=== PATIENT | female | born 1935 | race Asian ===

== ENCOUNTER 2019-06-16 14:14 | Emergency (ER) | payer MEDICARE, MEDICAID ==
[~2019-06-16] VITALS: Ht 162.6 cm; Wt 43.0 kg
--- NOTE | 2019-06-16 14:24 | NUR ---
PT BIB EMS FROM [facility]. PT WAS AT DOCTOR FOR CHECK UP. SHE IS ON CONTINOUS 02 AND WHILE AT THE DOCTORS OFFICE HER 0XYGEN TANK WASFOUND TO BE EMPTY. PT WAS SOB AND C/O CP. RA SP02=60%. EMS WAS CALLED ON THEIR ARRIVAL THEY PLACED 02 4L NC WITH EFFECT AND PTNOW PRESENTS WITH SP02 = 100% ON 4L NC. FI02 DECREASED TO 2L NC. PT ON MONITORS VSS ALTHOUGH BP IS ELEVATED AT 176/101. LUNG SOUNDS CLR T/O ALTHOUGH DIMINISHED YOLANDA BASES. PT ON ALL MONITORS AND EKG COMPLETED.
--- NOTE | 2019-06-16 14:28 | NUR ---
PT MOVED TO ROOM 16, SBAR RPT TO ROSS CHRISTIANSON
[2019-06-16] MEDS ORDERED: ATOR-2 PO (15:27)
[2019-06-16] MEDS ORDERED: CARV3.12 PO (15:27)
[2019-06-16] MEDS ORDERED: ASPI-496 PO (15:29)
[2019-06-16] MEDS ORDERED: HYDR25TA6 PO (15:29)
[2019-06-16] MEDS ORDERED: LISI-170 PO (15:29)
[2019-06-16] MEDS ORDERED: BUDE10.2 INH (15:29)
[2019-06-16] MEDS ORDERED: TIOT18CA INH (15:29)
[2019-06-16] MEDS ORDERED: SODIUM CHLORIDE FLUSH 10ML SYR IVF ONE (15:30)
[2019-06-16 15:54] LABS: BASOPHILS # (AUTO) 0.02 x10^3/uL (0-0.1); BASOPHILS % (AUTO) 1 % (0-1); EOSINOPHILS # (AUTO) 0.08 x10^3/uL (0-0.4); EOSINOPHILS % (AUTO) 2 % (1-7); LYMPHOCYTES # (AUTO) 1.26 x10^3/uL (1-3.4); LYMPHOCYTES % (AUTO) 27 % (22-44); MD NO; MEAN CORPUSCULAR HEMOGLOBIN 31.7 pg (27.0-34.8); MEAN CORPUSCULAR HGB CONC 33.5 g/dL (32.4-35.8); MEAN CORPUSCULAR VOLUME 94.7 fL (80-100); MEAN PLATELET VOLUME 7.5 fL (7.4-10.4); MONOCYTES # (AUTO) 0.54 x10^3/uL (0.2-0.8); MONOCYTES % (AUTO) 12 % (2-9); NEUTROPHILS # (AUTO) 2.79 x10^3/uL (1.8-6.8); NEUTROPHILS % (AUTO) 59 % (42-75); PLATELET COUNT 284 x10^3/uL (130-400); RED BLOOD COUNT 3.32 x10^6/uL (3.82-5.3); RED CELL DISTRIBUTION WIDTH 12.7 % (9.6-15.2)
[2019-06-16 15:56] LABS: ALBUMIN 3.9 g/dL (3.4-5.0); ANION GAP 2 mmol/L (5-15); CHLORIDE 94 mmol/L (98-107)
[2019-06-16 16:00] LABS: ALANINE AMINOTRANSFERASE 28 U/L (12-78); ALKALINE PHOSPHATASE 154 U/L (45-117); BILIRUBIN,TOTAL 0.2 mg/dL (0.2-1.0); CREATININE 0.85 mg/dL (0.55-1.02); TOTAL PROTEIN 7.4 g/dL (6.4-8.2); TROPONIN I < 0.015 ng/mL (0.000-0.045)
--- NOTE | 2019-06-16 16:34 | NUR ---
AWAITING CT SCAN. GOT HER TWO BLANKETS.
--- NOTE | 2019-06-16 17:08 | NUR ---
awaiting ct scan
--- NOTE | 2019-06-16 17:23 | NUR ---
patient awaiting ct scan. friend at bedside growing impatient waiting. aidet. got blankets, socks, trying to help keep patient comfortable.
--- NOTE | 2019-06-16 17:34 | NUR ---
got patient three more blankets, still cold. placed bare hugger on low heat on patient. she has cold extremities, states this normal for her.
--- NOTE | 2019-06-16 17:44 | NUR ---
patient friend is angry about waiting for ct. aidet. apologizing.
--- NOTE | 2019-06-16 18:09 | NUR ---
HELPED PATIENT UP TO VOID IN BEDSIDE COMMODE, NO COMPLICATIONS.
--- NOTE | 2019-06-16 18:49 | NUR ---
REPORT RECEIVED FROM ROSS CHRISTIANSON. PLAN OF CARE DISCUSSED
--- NOTE | 2019-06-16 20:05 | NUR ---
PATIENT PROVIDED WITH FOOD AND COFFEE AFTER VERIFYING OKAY BY MD SARITA
[2019-06-16 20:21] VITALS: BP 173/67
--- NOTE | 2019-06-16 20:47 | NUR ---
Patient/Caregiver given discharge instructions and they have confirmed that they understand the instructions. Patient ambulatory with steady gait with own walker, placed back on home O2 at 2L
== END 2019-06-16 21:29 | disposition home or self-care (01) ==
LOC: ED 21:00
DX: R06.00 Dyspnea, unspecified (principal); R07.9 Chest pain, unspecified; R20.2 Paresthesia of skin; I25.2 Old myocardial infarction; I11.0 Hypertensive heart disease with heart failure; I50.9 Heart failure, unspecified; J44.9 Chronic obstructive pulmonary disease, unspecified; Z87.891 Personal history of nicotine dependence
CPT/HCPCS: 36415; 71045; 71260; 80053; 83605; 84484; 85025; 87040; 93005; 99285